=== PATIENT | female | born 1985 | race Caucasian/White ===

== ENCOUNTER 2025-03-25 09:59 | Inpatient (IN) ==
[2025-03-25] MEDS: cefTRIAXone 2 GM in DEXTROSE 5% IN WATER 50 ML IV ONE (10:51)
[2025-03-25] MEDS: AZITHROMYCIN 500 MG in DEXTROSE 5% IN WATER 250 ML IV ONE (11:26)
[2025-03-25 12:06] LABS: Basophils # (Auto) 0.03 K/mcL (0.00-0.30); Basophils % (Auto) 0.3 % (0.0-2.0); Eosinophils # (Auto) 0.03 K/mcL (0.00-0.70); Eosinophils % (Auto) 0.3 % (0.0-7.0); Hematocrit 38.5 % (34.1-44.9); Hemoglobin 12.4 g/dL (11.2-15.7); Lymphocytes # (Auto) 1.35 K/mcL (1.50-4.80); Lymphocytes % (Auto) 14.7 % (15.5-49.0); Mean Corpuscular HGB Conc 32.2 g/dL (31.0-36.0); Monocytes # (Auto) 0.84 K/mcL (0.10-0.90); Monocytes % (Auto) 9.2 % (1.0-12.0); Neutrophils % (Auto) 74.4 % (38.0-78.0); Platelet Count 264 K/mcL (140-440); RBC 4.15 M/mcL (3.59-5.38); WBC 9.2 K/mcL (4.5-11.0)
[2025-03-25 12:38] LABS: Anion Gap 15.0 (8.0-16.0); Blood Urea Nitrogen 9 mg/dL (6-20); Calcium 9.1 mg/dL (8.6-10.4); Carbon Dioxide 21 mmol/L (22-30); Chloride 101 mmol/L (96-108); Glucose 118 mg/dL (70-105); Potassium 4.2 mmol/L (3.3-5.1); Sodium 137 mmol/L (133-145)
[2025-03-25 14:33] LABS: RBC Morphology NORMAL (Normal)
[2025-03-25] MEDS ORDERED: POLYETHYLENE GLYCOL 3350 17 GM PACKET PO PRN (15:11)
[2025-03-25] MEDS ORDERED: POTASSIUM CHLORIDE 40 MEQ in DEXTROSE 5% IN WATER 500 ML IV PRN (15:11)
[2025-03-25] MEDS ORDERED: ACETAMINOPHEN 325 MG TABLET PO PRN (15:11)
[2025-03-25] MEDS ORDERED: SENNOSIDES 1 TABLET PO PRN (15:11)
[2025-03-25] MEDS ORDERED: MAGNESIUM SULFATE 2 GM/50 ML BAG IV PRN (15:11)
[2025-03-25] MEDS ORDERED: ONDANSETRON 4 MG/2 ML VIAL IV PRN (15:11)
[2025-03-25] MEDS ORDERED: POTASSIUM CHLORIDE 20 MEQ TABLET PO PRN ×2 (15:11)
[2025-03-25] MEDS ORDERED: METOCLOPRAMIDE 10 MG/2 ML VIAL IV PRN (15:11)
[2025-03-25] MEDS: IPRATROPIUM/ALBUTEROL 3 ML AMPUL.NEB NEB PRN (15:56)
[2025-03-25] MEDS: 0.9 % SODIUM CHLORIDE 10 ML SYRINGE IV SCH (16:32)
[2025-03-25 17:56] LABS: Barbiturate Screen,Urine None detected; Benzodiazepines Screen,Urine None detected; Fentanyl, Urine Screen None Detected; Opiate Screen,Urine None detected; Oxycodone, Urine Screen None detected; Phencyclidine Screen,Urine None detected
[2025-03-25] MEDS: BENZONATATE 100 MG CAPSULE PO PRN (19:18)
[2025-03-25] MEDS: DOCUSATE SODIUM 100 MG CAPSULE PO SCH (20:12)
[2025-03-25] MEDS: ENOXAPARIN 40 MG/0.4 ML SYRINGE SQ SCH (20:19)
[2025-03-26 06:44] LABS: Hematocrit 38.8 % (34.1-44.9); Hemoglobin 12.1 g/dL (11.2-15.7); Mean Corpuscular HGB Conc 31.2 g/dL (31.0-36.0); Platelet Count 266 K/mcL (140-440); RBC 4.17 M/mcL (3.59-5.38); WBC 9.5 K/mcL (4.5-11.0)
[2025-03-26] MEDS: LEVOTHYROXINE 50 MCG TABLET PO SCH (07:25)
[2025-03-26 07:34] LABS: ALT/SGPT 61 U/L (<40); AST/SGOT 51 U/L (<32); Albumin 3.9 gm/dL (3.2-5.2); Albumin/Globulin Ratio 1.0 (1.0-2.3); Alkaline Phosphatase 107 U/L (39-117); Anion Gap 15.0 (8.0-16.0); Bilirubin,Direct < 0.2 mg/dL (0-0.3); Bilirubin,Total 0.3 mg/dL (0.1-1.0); Blood Urea Nitrogen 11 mg/dL (6-20); Calcium 9.5 mg/dL (8.6-10.4); Carbon Dioxide 24 mmol/L (22-30); Chloride 99 mmol/L (96-108); Globulin 4.0 gm/dL (2.2-3.7); Glucose 131 mg/dL (70-105); Phosphorous 4.9 mg/dL (2.5-4.5); Potassium 4.3 mmol/L (3.3-5.1); Sodium 138 mmol/L (133-145); Triglycerides 102 mg/dL (<150); Uric Acid 5.4 mg/dL (2.5-8.0)
[2025-03-26 08:38] LABS: RBC Morphology NORMAL (Normal)
[2025-03-26] MEDS: cefTRIAXone 2 GM in DEXTROSE 5% IN WATER 50 ML IV SCH (09:45)
[2025-03-26] MEDS: buPROPion 150 MG TAB.XL.24H PO SCH (09:46)
[2025-03-26] MEDS: SPIRONOLACTONE 25 MG TABLET PO SCH (09:47)
[2025-03-26] MEDS: ESCITALOPRAM 10 MG TABLET PO SCH (09:47)
[2025-03-26] MEDS: ZINC SULFATE 50 MG CAPSULE PO SCH (09:48)
[2025-03-26] MEDS: AZITHROMYCIN 500 MG in DEXTROSE 5% IN WATER 250 ML IV SCH (10:24)
[2025-03-27 07:07] LABS: C-Reactive Protein 9.93 mg/dL (0.03-0.80)
[2025-03-27 07:50] VITALS: O2SAT 92
[2025-03-27 08:11] LABS: Anion Gap 12.0 (8.0-16.0); Blood Urea Nitrogen 14 mg/dL (6-20); Calcium 9.2 mg/dL (8.6-10.4); Carbon Dioxide 26 mmol/L (22-30); Chloride 103 mmol/L (96-108); Glucose 105 mg/dL (70-105); Potassium 4.0 mmol/L (3.3-5.1); Sodium 141 mmol/L (133-145)
[2025-03-27] MEDS: AZITHROMYCIN 250 MG TABLET PO SCH (09:24)
[2025-03-27] MEDS: FLU VACC TS2025-26(6MOS UP)/PF 45 MCG/0.5 ML SYRINGE IM ONE (09:27)
[2025-03-27 12:24] VITALS: TEMP 97.6
== END 2025-03-27 11:23 | disposition home or self-care (01) | DRG 189 ==
LOC: ED 09:59 → MEDSUR 14:51
PROVIDERS: ADMIT Internal Medicine; ATTEND Internal Medicine